=== PATIENT | female | born 1970 | race Caucasian/White ===

== ENCOUNTER → 2022-09-29 | Outpatient (CLI) | payer OTHER ==
[~2022-09-29] MED LIST: BISO5TAB14 PO; C-251TAB PO; CITA20TA6 PO; D3 H10002 PO; HYDR-3490 PO; KELN1TAB PO; LEVOTAB10 PO; MONT-5 PO; PHEN-239 PO
== END ==
LOC: M LABSMTC 08:54
PROVIDERS: ATTEND Anesthesiology
DX: Z11.52 Encounter for screening for COVID-19 (principal)

== ENCOUNTER 2022-10-03 06:24 | Day surgery (SDC) | payer OTHER ==
[~2022-10-03] VITALS: Ht 165.1 cm; Wt 93.8 kg
[~2022-10-03 06:24] MED LIST changes: +CYCLOPENTOLATE 1% OPHTH SOLN 2ML BTL OD SCH; +OFLOXACIN 0.3 % (OCUFLOX) OPTH SOL 5ML OD SCH; +PHENYLEPHRINE 2.5% OPHTH SOL 2ML OD SCH; +PROPARACAINE 0.5% OPHTH SOL 15ML OD ONE; +TROPICAMIDE 1% OPHTH SOLN 15ML OD SCH
[2022-10-03] MEDS ORDERED: LIDOCAINE 1% SDV 5ML VIAL As Ordered ONE (06:35)
[2022-10-03] MEDS ORDERED: BSS IRR 500ML/OMIDRIA 4ML IRR BAG (OR ONLY) As Ordered ONE (06:35)
[2022-10-03] MEDS ORDERED: CEFUROXIME 1MG/0.1ML INTRACAMERAL INJ As Ordered ONE (06:35)
[2022-10-03] MEDS ORDERED: MIDAZOLAM INJ 2MG/2ML VIAL As Ordered ONE (06:39)
[2022-10-03] MEDS ORDERED: fentaNYL 100 MCG/2 ML INJECTION As Ordered ONE (06:40)
[2022-10-03] MEDS ORDERED: EPINEPHrine INJ 1 MG/ML 1ML AMP As Ordered ONE (08:08)
[2022-10-03 08:49] VITALS: BP 133/67
== END 2022-10-03 09:05 | disposition home or self-care (01) ==
LOC: M SDC 06:24
PROVIDERS: ATTEND Ophthalmology
DX: H25.12 Age-related nuclear cataract, left eye (principal); I10 Essential (primary) hypertension; G43.909 Migraine, unspecified, not intractable, without status migrainosus; Z79.899 Other long term (current) drug therapy; J45.909 Unspecified asthma, uncomplicated; Z88.8 Allergy status to other drugs, medicaments and biological substances
CPT/HCPCS: 66984; 81025; J0171; J0697; J2250; J3010

== ENCOUNTER → 2023-12-17 | Outpatient (CLI) | payer OTHER ==
[~2023-12-17] MED LIST changes: -CYCLOPENTOLATE 1% OPHTH SOLN 2ML BTL OD SCH; -OFLOXACIN 0.3 % (OCUFLOX) OPTH SOL 5ML OD SCH; -PHENYLEPHRINE 2.5% OPHTH SOL 2ML OD SCH; -PROPARACAINE 0.5% OPHTH SOL 15ML OD ONE; -TROPICAMIDE 1% OPHTH SOLN 15ML OD SCH
== END ==
LOC: M OUTALCOH 08:01
PROVIDERS: ATTEND Psychiatry & Neurology Psychiatry
DX: F10.10 Alcohol abuse, uncomplicated (principal)

== ENCOUNTER 2023-12-26 08:43 | Outpatient (RCR) | payer OTHER | END 2023-12-30 | LOC: M OUTALCOH 08:43 | PROVIDERS: ATTEND Psychiatry & Neurology Psychiatry | DX: F10.10 Alcohol abuse, uncomplicated (principal) ==

== ENCOUNTER 2024-01-24 14:47 | Outpatient (RCR) | payer OTHER | END 2024-01-30 | LOC: M OUTALCOH 14:47 | PROVIDERS: ATTEND Psychiatry & Neurology Psychiatry | DX: F10.10 Alcohol abuse, uncomplicated (principal) ==

== ENCOUNTER 2024-02-28 13:44 | Outpatient (RCR) | payer OTHER | END 2024-03-01 | LOC: M OUTALCOH 13:44 | PROVIDERS: ATTEND Psychiatry & Neurology Psychiatry | DX: F10.10 Alcohol abuse, uncomplicated (principal) ==

== ENCOUNTER 2024-03-20 13:00 | Outpatient (RCR) | payer OTHER | END 2024-03-31 | LOC: M OUTALCOH 13:00 | PROVIDERS: ATTEND Psychiatry & Neurology Psychiatry | DX: F10.10 Alcohol abuse, uncomplicated (principal) ==